=== PATIENT | female | born 1980 | race African-American/Black ===

== ENCOUNTER 2021-02-16 06:00 | Observation (INO) ==
[2021-02-09 11:23] LABS: Basophils % 0.4 % (0.0-0.8); Eosinophils # 0.1 10*3/uL (0.0-0.87); Hematocrit 36.1 VOL% (35.7-47.0); Hemoglobin 11.7 GM/DL (12.0-16.0); Immature Granulocytes % 0.4 %; Immature Granulocytes Absolute 0.02 #; Lymphocytes # 1.2 10*3/uL (1.4-4.0); Lymphocytes % 24.8 % (21.3-54.2); Mean Corpuscular HGB Conc 32.4 GM/DL (32-36); Mean Platelet Volume 9.5 FL (9.6-12.0); Monocytes % 9.7 % (1.7-12.7); Neutrophils % 63.7 % (38.7-73.9); Platelet Count 352 T/CUMM (130-400); Red Cell Distribution Width 13.4 % (9.3-17.3); White Blood Count 4.8 T/CUMM (4-12)
[2021-02-09 11:26] LABS: Amorphous Crystals,Urine Few /HPF (Few); Bacteria,Urine Occasional /HPF (Few); Bilirubin,Urine Negative (Negative); Blood, Urine Negative (Negative); Glucose,Urine (UA) Negative (Negative); Ketones,Urine Negative (Negative); Mucus,Urine Occasional /LPF (Occasional); Nitrite,Urine Negative (Negative); Protein,Urine Negative; RBC,Urine 1 /HPF (0-4); Squamous Epithelial Cell,Urine Moderate /HPF (0-10); Urine Appearance Slightly Hazy (Clear); Urine Color Yellow (Yellow); Urine Specific Gravity 1.012 (1.001-1.035); Urine Urobilinogen < 2.0 EU/DL (<2.0)
[2021-02-09 11:48] LABS: Albumin 3.7 G/DL (3.4-5.0); Bilirubin,Total 0.8 MG/DL (0.20-1.00); Calcium 9.5 MG/DL (8.5-10.1); Osmolality,Calculated 276.4 MOS/KG (273-304); Potassium 4.2 MMOL/L (3.5-5.1); Risk Ratio 4.27; Total Protein 7.3 G/DL (6.4-8.2); VLDL Cholesterol 22.2 MG/DL
[2021-02-09 12:29] LABS: HIV Antigen/Antibody Result Nonreactive (Nonreactive)
[~2021-02-16 06:00] MED LIST: AMPICILLIN/SULBACTAM 3,000 MG in SODIUM CHLORIDE 0.9% 100 ML IV ONE
[2021-02-16] MEDS ORDERED: LACTATED RINGERS 1,000 ML IV SCH ×2 (06:30→09:30)
[2021-02-16] MEDS ORDERED: KETAMINE 500 MG/10 ML VIAL ONE (06:34)
[2021-02-16] MEDS ORDERED: ONDANSETRON 4 MG/2 ML VIAL ONE (06:34)
[2021-02-16] MEDS ORDERED: propofoL 200 MG/20 ML VIAL IV ONE (06:34)
[2021-02-16] MEDS ORDERED: DEXAMETHASONE 4 MG/1 ML VIAL ONE (06:34)
[2021-02-16] MEDS ORDERED: ROCURONIUM 50 MG/5 ML VIAL IV ONE (06:34)
[2021-02-16] MEDS ORDERED: DEXMEDETOMIDINE 200 MCG/2 ML VIAL ONE ×2 (06:34→06:40)
[2021-02-16] MEDS ORDERED: LIDOCAINE 2% 5 ML VIAL ONE (06:34)
[2021-02-16] MEDS ORDERED: BUPIVACAINE 0.5% 50 ML VIAL ONE (06:38)
[2021-02-16] MEDS ORDERED: MIDAZOLAM 2 MG/2 ML VIAL ONE ×2 (06:39→06:40)
[2021-02-16] MEDS ORDERED: GABAPENTIN 400 MG CAPSULE ONE (06:49)
[2021-02-16] MEDS ORDERED: ACETAMINOPHEN 500 MG TABLET ONE (06:50)
[2021-02-16] MEDS ORDERED: FAMOTIDINE 20 MG TABLET ONE (06:50)
[2021-02-16] MEDS ORDERED: METOCLOPRAMIDE 10 MG/2 ML VIAL ONE (07:51)
[2021-02-16] MEDS ORDERED: HYDROmorphone 2 MG/1 ML VIAL ONE (07:53)
[2021-02-16] MEDS ORDERED: DESFLURANE 1 UNIT/15 MINUTE INH ONE ×2 (07:59→09:17)
[2021-02-16] MEDS ORDERED: GLYCOPYRROLATE 0.4 MG/2 ML VIAL ONE (09:03)
[2021-02-16] MEDS ORDERED: NEOSTIGMINE 10 MG/10 ML VIAL ONE (09:03)
[2021-02-16] MEDS ORDERED: BISACODYL 10 MG SUPP RECTAL PRN (09:10)
[2021-02-16] MEDS ORDERED: MAGNESIUM HYDROXIDE SUSP 30 ML UDCUP PO PRN (09:10)
[2021-02-16] MEDS ORDERED: ONDANSETRON 4 MG/2 ML VIAL IV PRN (09:10)
[2021-02-16] MEDS ORDERED: DOCUSATE SODIUM 100 MG CAPSULE PO PRN (09:10)
[2021-02-16] MEDS ORDERED: ACETAMINOPHEN 325 MG TABLET PO PRN (09:10)
[2021-02-16] MEDS ORDERED: IBUPROFEN 800 MG TABLET PO PRN (09:10)
[2021-02-16] MEDS ORDERED: BENZOCAINE/MENTHOL LOZENGE 18/BOX PO PRN (09:10)
[2021-02-16] MEDS ORDERED: HYDROmorphone 2 MG/1 ML VIAL IV PRN (09:11)
[2021-02-16] MEDS ORDERED: LABETALOL 20 MG/4 ML SYRINGE IV ONE (09:16)
[2021-02-16 09:34] LABS: Bacteria,Urine Occasional /HPF (Few); Bilirubin,Urine Negative (Negative); Blood, Urine Negative (Negative); Glucose,Urine (UA) Negative (Negative); Ketones,Urine Negative (Negative); Mucus,Urine Occasional /LPF (Occasional); Nitrite,Urine Negative (Negative); Protein,Urine Negative; RBC,Urine 2 /HPF (0-4); Urine Appearance CLEAR (Clear); Urine Color Yellow (Yellow); Urine Specific Gravity 1.011 (1.001-1.035); Urine Urobilinogen < 2.0 EU/DL (<2.0)
[2021-02-16] MEDS ORDERED: PROMETHAZINE 25 MG/1 ML VIAL IM PRN (10:36)
[2021-02-17 06:02] LABS: Basophils % 0.1 % (0.0-0.8); Eosinophils % 0.1 % (0.00-10.9); Hematocrit 31.5 VOL% (35.7-47.0); Hemoglobin 10.3 GM/DL (12.0-16.0); Immature Granulocytes % 0.5 %; Immature Granulocytes Absolute 0.05 #; Lymphocytes # 1.2 10*3/uL (1.4-4.0); Mean Corpuscular HGB Conc 32.7 GM/DL (32-36); Mean Corpuscular Volume 85.4 FL (87-102); Mean Platelet Volume 9.3 FL (9.6-12.0); Monocytes % 7.8 % (1.7-12.7); Neutrophils % 79.5 % (38.7-73.9); Platelet Count 348 T/CUMM (130-400); Red Blood Count 3.69 MC/CUMM (3.8-5.5); Red Cell Distribution Width 13.2 % (9.3-17.3); White Blood Count 9.8 T/CUMM (4-12)
[2021-02-17] MEDS ORDERED: SIMETHICONE CHEW 80 MG TABLET PO PRN (08:03)
[2021-02-17] MEDS: METOCLOPRAMIDE 10 MG TABLET PO SCH ×2 (08:42→16:20)
[2021-02-17] MEDS ORDERED: MAGNESIUM CITRATE 300 ML BOTTLE PO ONE (12:57)
[2021-02-17 16:27] VITALS: BP 129/82
== END 2021-02-17 19:10 | disposition home or self-care (01) ==
LOC: N.OR 06:00 → N.SDSINP 06:04 → INTOOBSV 09:09 → N.SDSINP 09:09 → N.OB 10:13
PROVIDERS: ADMIT Obstetrics & Gynecology; ATTEND Obstetrics & Gynecology